=== PATIENT | male | born 1995 | race Caucasian/White ===

== ENCOUNTER 2021-04-24 20:37 | Emergency (ER) | payer SELFPAY ==
[~2021-04-24] VITALS: Ht 182.9 cm; Wt 100.0 kg
[2021-04-24 20:56] VITALS: TEMP 101
[2021-04-24 22:32] VITALS: BP 144/70; PULSE 78
== END 2021-04-24 22:32 | disposition home or self-care (01) ==
LOC: COL.ER 20:37
DX: U07.1 COVID-19 (principal); F17.200 Nicotine dependence, unspecified, uncomplicated
CPT/HCPCS: J1885; J2405; J7030

== ENCOUNTER 2021-04-26 01:20 | Inpatient (IN) | payer SELFPAY ==
[~2021-04-26] VITALS: Ht 182.9 cm; Wt 96.8 kg
[2021-04-26 02:41] LABS: HEMATOCRIT 43.4 % (42.0-52.0); HEMOGLOBIN 15.2 g/dl (13.5-18.0); MEAN CELL VOLUME 85 fl (80.0-100.0); MEAN CORPUSCULAR HEMOGLOBIN 30 pg (27.0-31.0); MEAN CORPUSCULAR HGB CONC 35 g/dl (33.0-37.0); MEAN PLATELET VOLUME 10.5 fl (7.4-10.4); PLATELET COUNT 159 K/mm3 (130-400); RED BLOOD COUNT 5.08 M/mm3 (4.20-5.60); REDCELL DISTRIBUTION WIDTH-CV 11.9 % (11.5-14.5)
[2021-04-26 03:01] LABS: ALBUMIN 3.4 gm/dL (3.5-5.0); BILIRUBIN,TOTAL 0.6 mg/dL (0.2-1.2); C-REACTIVE PROTEIN 12.3 mg/dL (0.00-0.50); CALCIUM 8.6 mg/dL (8.4-10.2); CREATININE, serum 1.14 mg/dL (0.72-1.25); POTASSIUM 3.5 mmol/L (3.5-4.5)
[2021-04-26 03:05] LABS: BAND 1 % (0-10); BASOPHIL 1 % (0-2); LYMPHOCYTE 9 % (20.0-51.0); NEUTROPHILS 83 % (42.0-75.2); PLATELET ESTIMATE NORMAL (NORMAL)
[2021-04-26 03:06] LABS: TROPONIN-I 0.011 ng/mL (0.00-0.033)
--- NOTE | 2021-04-26 07:30 | NUR ---
Patient admitted from the ED for Covid. Upon initial assessment, patient is requiring 4.5 L of O2 via nasal cannula. Lung sounds diminished in all olivas, crackles in lower right field. Normal S1 and S2 sounds present, radial and pedal pulses +2 bilaterally. Bowel sounds present in all four quadrants. Patient running a temperature of 102.0. Tylenol administered. Upon re-assessment, temperature was 100.3. Cool clothes placed on patient. Fluids running as ordered. Patient states that he has been having some nausea, but denies any vomitting or diarrhea. PRN Robutussin given for cough. Patient denies any pain, discomfort, or further needs at this time. Call light in reach.
[2021-04-26 07:39] VITALS: PULSE 101; TEMP 102
[2021-04-26 10:33] VITALS: TEMP 100.3
--- NOTE | 2021-04-26 12:13 | NUR ---
Bubbler placed on O2 due to complaints of dry nares.
[2021-04-26 12:45] VITALS: BP 127/76; PULSE 86; TEMP 98.4
[2021-04-26 16:00] VITALS: BP 145/77; PULSE 96; TEMP 100
--- NOTE | 2021-04-26 16:46 | NUR ---
road worker attempted to contact patient via cell phone ([phone]) and room phone, both were unsuccessful.
--- NOTE | 2021-04-26 17:20 | NUR ---
Patient currently requiring 5 L of O2 via nasal cannula. This RN spoke with patient about the importance of adequate nutrition during the healing process. Patient encouraged to get up and walk around. Patient verbalized an understanding of the teaching. Fluids running as ordered. Patient denies any pain, discomfort, or further needs at this time. Call light in reach.
[2021-04-26 19:54] VITALS: BP 146/57; PULSE 108; TEMP 101.5
--- NOTE | 2021-04-26 20:00 | NUR ---
Assessment complete. Patient is febrile at 101.5 and is experiencing chills and tachycardia of 108 bpm. PRN Tylenol is administered, in addition to cough medicine. Fine crackles are noted in patient's lung bases. He is satting 93% on 5 liters 02 with a respiratory rate of 24. Will continue close monitoring.
--- NOTE | 2021-04-26 22:30 | NUR ---
Patient's temperature has come down to 99.2 at this time and tachycardia/chills have subsided. Patient has just been up to the bathroom and is satting 88-89% on 5 liters; He is titrated up to 7.5 liters before he is able to sat above 91%. Comfort measures provided.
[2021-04-27] VITALS (8 sets, daily range): BP systolic 116–130; BP diastolic 64–78; PULSE 50–106; TEMP 98.3–98.7
--- NOTE | 2021-04-27 | NUR ---
Temp has come down to 98.3 and patient is resting comfortably. He is titrated down to 6 liters and satting 93%. Fluids still infusing into left a/c IV.
--- NOTE | 2021-04-27 04:00 | NUR ---
Patient transitioned to airvo by RT Powell at this time. He is satting 92-93% on 60L/80% Patient is repositioned on his side/stomach for better oxygenation. Anti-anxiety medications are offered and patient denies the need. He appears receptive of education. PRN cough medication is administered again. Bloody sputum sample sent to lab for review. Will continue close monitoring.
[2021-04-27 04:44] LABS: ARTERIAL BLD GAS O2 SATURATION 87.1 % (92-100); ARTERIAL BLD GAS TCO2 CT 24.3; ARTERIAL BLOOD GAS BASE EXCESS 0.4 (-2-2); ARTERIAL BLOOD GAS HCO3 23.3 meq/L (22-26); ARTERIAL BLOOD GAS PCO2 32.7 mmHg (35-45); ARTERIAL BLOOD GAS pH 7.47 (7.35-7.45)
[2021-04-27 04:45] LABS: ARTERIAL BLOOD GAS PO2 47.9 mmHg (80-100)
[2021-04-27 05:56] LABS: ARTERIAL BLD GAS O2 SATURATION 94.8 % (92-100); ARTERIAL BLD GAS TCO2 CT 24.5; ARTERIAL BLOOD GAS BASE EXCESS 0.4 (-2-2); ARTERIAL BLOOD GAS HCO3 23.4 meq/L (22-26); ARTERIAL BLOOD GAS PCO2 33.4 mmHg (35-45); ARTERIAL BLOOD GAS PO2 72.8 mmHg (80-100); ARTERIAL BLOOD GAS pH 7.46 (7.35-7.45)
--- NOTE | 2021-04-27 15:09 | NUR ---
fish hatchery worker attempted contact with patient again today with no success. Contact made with the patients mother who states that the patient lives at home with her, is fully independent and utilizes no medical equipment. Mother states that the patient had the opportunity to sign up for medical insurance through his employer, however didn't feel like he needed to because he has always been healthy. Mother questions about getting the patient established on [facility]. I educated her that the chance of this is unlikely, however i can have our financial assistance team reach out.
--- NOTE | 2021-04-27 18:32 | NUR ---
Patient has had an ok day. Scheduled medications given. Shift assessment preformed. Patient currently requiring 60L on airvo at 80%. Robutussin given once this shift for cough. PICC line placed by SHAMEKA Carmona. Update given to Torin. Patient still does not have much of an appetite. Fluids encouraged. Patient denies any pain, discomfort, or further needs at this time. VSS. Patient A&O. Call light in reach.
--- NOTE | 2021-04-27 20:00 | NUR ---
Assessment complete. Patient on airvo 60L/80% and is breathing easily, satting 93%. Pt is afebrile at this time. PRN cough medicine is provided, in addition to water and snacks. Patient denies pain. Will continue to monitor.
[2021-04-28 04:18] VITALS: BP 116/63; PULSE 61; TEMP 98.4
--- NOTE | 2021-04-28 07:00 | NUR ---
Report received from SHAMEKA Brady. pT in bed resting with AIRVO in place, will continue to monitor.
[2021-04-28 07:36] VITALS: BP 119/60; PULSE 60; TEMP 98.2
[2021-04-28 07:44] LABS: MEAN CELL VOLUME 86 fl (80.0-100.0); MEAN CORPUSCULAR HGB CONC 35 g/dl (33.0-37.0); MEAN PLATELET VOLUME 10.1 fl (7.4-10.4); PLATELET COUNT 251 K/mm3 (130-400); REDCELL DISTRIBUTION WIDTH-CV 11.9 % (11.5-14.5)
[2021-04-28 07:59] LABS: CALCIUM 7.6 mg/dL (8.4-10.2); CREATININE, serum 0.75 mg/dL (0.72-1.25); POTASSIUM 3.8 mmol/L (3.5-4.5)
--- NOTE | 2021-04-28 08:00 | NUR ---
ASessemnt charted. Pt is tachypneac, shallow breathing and only at 92% on 60L/85% AIRVO. Notified RT of this and discussed possibility of switching to Bipap. Pt states he is coughing some and has some blood tinge to sputum. States he is feeling okay, dneies pain, does appear anxious at rest. Discussed things he can do like move in bed, sit at side of bed, get up to bathroom, sit in recliner, prone. Pt agreeable to suggestions, also discussed need to take it slow and if getting short of breath to take frequent restes. PICC to LEXUS flushes and good blood return. Will continue to monitor.
[2021-04-28 08:13] LABS: HEMATOCRIT 36.9 % (42.0-52.0); HEMOGLOBIN 12.9 g/dl (13.5-18.0); MEAN CORPUSCULAR HEMOGLOBIN 30 pg (27.0-31.0)
[2021-04-28 08:36] LABS: BAND 5 % (0-10); LYMPHOCYTE 17 % (20.0-51.0); NEUTROPHILS 71 % (42.0-75.2); PLATELET ESTIMATE NORMAL (NORMAL)
[2021-04-28 11:32] LABS: COLLECTION METHOD CLEAN CATCH
[2021-04-28 11:40] LABS: PH 7 (5-8); SQUAMOUS EPITHELIAL None Seen /hpf; URINE APPEARANCE Clear; URINE BACTERIA None Seen /hpf; URINE BILIRUBIN Negative (NEGATIVE); URINE BLOOD Negative (NEGATIVE); URINE COLOR Yellow; URINE GLUCOSE Negative (NEGATIVE); URINE KETONE Negative (NEGATIVE); URINE LEUKOCYTE ESTERASE Negative (NEGATIVE); URINE NITRATE Negative (NEGATIVE); URINE PROTEIN(semi-quant) Negative (NEGATIVE); URINE RBC 0-2 /hpf; URINE UROBILINOGEN Negative (NEGATIVE)
[2021-04-28 12:31] VITALS: BP 116/57; PULSE 69; TEMP 98.5
--- NOTE | 2021-04-28 13:14 | NUR ---
Update provided to mother per request.
[2021-04-28 15:38] VITALS: BP 123/72; PULSE 63; TEMP 98.2
--- NOTE | 2021-04-28 18:14 | NUR ---
Pt resting in bed with eyes clsoed, tolerating decrease in AIRVO needs well. Resting quietly between disturbances but states he still has no appetite and has not eaten. Encouraging PO intake. Will give report to nightshift nurse whoi will resume care.
[2021-04-28 19:27] VITALS: BP 124/54; PULSE 72; TEMP 98.4
[2021-04-29] VITALS (7 sets, daily range): BP systolic 120–128; BP diastolic 65–75; PULSE 59–90; TEMP 98.1–98.6
--- NOTE | 2021-04-29 06:30 | NUR ---
Report received from SHAMEKA Guillen. PT in bed resting, denies needs, will continue to monitor.
--- NOTE | 2021-04-29 06:31 | NUR ---
PT HAD UNEVENTFUL NIGHT, 02 AIRVO 45L. 69 FIO2, SATURATING 97 PERCENT. ABX ADMINSTERED ORDERED. PT DENIES PAIN,SOA, N,V,D, PAIN. ALL NEEDS MET. CALL LIGHT WITHIN REACH.
--- NOTE | 2021-04-29 08:00 | NUR ---
Assessment charted. Pt feeling well today, feels breathing is easier. States he ate food from home last night. Will continue to monitor.
--- NOTE | 2021-04-29 18:15 | NUR ---
Pt has done well over shift, resting off and on. Denies needs, 02 titrating down well, will continue to monitor and give bedside shift report to nightshift nurse who will resume care.
--- NOTE | 2021-04-29 23:28 | NUR ---
PT TITRATED DOWN ON AIRVO 40L, 38 FIO2 SATURATING 96 PERCENT. DENIES SOA,PAIN,N,V,D.
--- NOTE | 2021-04-30 01:35 | NUR ---
PT WEANED TO HIGH FLOW NC 8L, SATURATING 95 PERCENT. PT TOLERATING WELL. THIS NURSE WILL CONTINUE TO MONITOR.
[2021-04-30 03:35] VITALS: BP 104/57; PULSE 57; TEMP 98
--- NOTE | 2021-04-30 06:21 | NUR ---
PT SLEPT INTERMITTENTLY THROUGH OUT NIGHT, PT TOLERATING 8L NC WITH SATURATIONS OVER 92 PERCENT. PT DENIES N,V,D. HAS REMAINED AFEBRILE. POC DISCUSSED WITH PT AND MOTHER. BOTH VERBALIZE UNDERSTANDING. THIS NURSE REVIEWED THE PURPOSE OF 02 WEANING, POSITIONING AND DIET. ALL QUESTIONS/CONCERNS ANSWERED. CALL LIGHT WITHIN REACH.
--- NOTE | 2021-04-30 08:03 | NUR ---
Pt sleeping upon entry, easily awakened, no C/O pain at this time. Shift assessment complete, left Pt call light in reach, bed in lowest position.
[2021-04-30 08:18] VITALS: BP 111/50; PULSE 104; TEMP 97.9
--- NOTE | 2021-04-30 10:47 | NUR ---
The patient is listed as self pay. SW consulted Financial Counseling for an FAA. The patient is currently requiring 8 liters of oxygen.
[2021-04-30 11:43] VITALS: BP 126/69; PULSE 65; TEMP 99.2
[2021-04-30 13:30] LABS: HEMATOCRIT 43.8 % (42.0-52.0); MEAN CELL VOLUME 87 fl (80.0-100.0); MEAN CORPUSCULAR HEMOGLOBIN 30 pg (27.0-31.0); MEAN CORPUSCULAR HGB CONC 34 g/dl (33.0-37.0); MEAN PLATELET VOLUME 9.9 fl (7.4-10.4); PLATELET COUNT 315 K/mm3 (130-400); RED BLOOD COUNT 5.03 M/mm3 (4.20-5.60); REDCELL DISTRIBUTION WIDTH-CV 11.9 % (11.5-14.5)
[2021-04-30 13:45] LABS: HEMOGLOBIN 14.9 g/dl (13.5-18.0)
[2021-04-30 13:50] LABS: CALCIUM 8.8 mg/dL (8.4-10.2); CREATININE, serum 0.8 mg/dL (0.72-1.25); MAGNESIUM 2.1 mg/dL (1.6-2.6); POTASSIUM 4.2 mmol/L (3.5-4.5)
[2021-04-30 13:57] LABS: LYMPHOCYTE 22 % (20.0-51.0); NEUTROPHILS 66 % (42.0-75.2)
[2021-04-30 13:58] LABS: HYPOCHROMIA 3+
[2021-04-30 13:59] LABS: PLATELET ESTIMATE NORMAL (NORMAL)
[2021-04-30 16:13] VITALS: BP 123/33; PULSE 80; TEMP 98.1
[2021-04-30 22:25] VITALS: BP 116/62; PULSE 71; TEMP 99
[2021-04-30 23:48] VITALS: BP 128/59; PULSE 68; TEMP 98.5
--- NOTE | 2021-05-01 00:02 | NUR ---
PT TITRATED TO 3L NC SATURING 95-97 PERCENT AT THIS TIME. THIS NURSE WILL CONTINUE TO MONITOR.
[2021-05-01 03:23] VITALS: BP 102/54; PULSE 58; TEMP 97.8
--- NOTE | 2021-05-01 05:34 | NUR ---
PT HAD UNEVENTFUL NIGHT, 02 REMAINS 3L NC WITH SATURATIONS 92-94 PERCENT. PT DENIES N,V,D. COUGH REMAINS WITH SCANT CLEAR THICK SPUTUM. I&O NOTED AND RECORDED. PT APPETITE INCREASING. POC DISCUSSED WITH PT THIS NIGHT. PT VERBALIZES. ALL QUESTIONS/CONCERNS ANSWERED. ALL NEEDS MET THIS NIGHT. CALL LIGHT WITHIN REACH.
[2021-05-01 08:00] VITALS: BP 120/71; PULSE 94; TEMP 98.6
--- NOTE | 2021-05-01 09:05 | NUR ---
Pt sleeping upon entry to room, easily awakened. No C/O pain at this time. Shift assessment complete, left Pt call light in reach, bed in lowest position
[2021-05-01] MEDS ORDERED: MONODOX100 PO (10:58)
[2021-05-01] MEDS ORDERED: DECADRON6 MG PO (10:59)
[2021-05-01] MEDS ORDERED: PROVENTIL0.09 MG/A1 IH (10:59)
[2021-05-01 11:07] VITALS: BP 122/65; PULSE 83; TEMP 98.5
--- NOTE | 2021-05-01 13:04 | NUR ---
Birth Certificate Clerk collaborated with RT who advised patient will not require home oxygen upon discharge. FATUMA then spoke with Hospitalist who advised patient will discharge home today. Field Marketing Lead has scheduled a telehealth visit with Dr. Shepard in [place]. FATUMA contacted patient's mother, Domonique to review discharge plan. Domonique advised she will not see Dr. Shepard herself, however thinks patient will be agreeable to telehealth visit. Domonique advised she contacted patient's preferred pharmacy and they can afford his discharge medications. Discharge Plan: Home with mother today
--- NOTE | 2021-05-01 17:30 | NUR ---
Pt discharged to home, discussed discharge packet with Pt. Escoreted Pt to entrance, Pt left with family via private transportation.
== END 2021-05-01 17:30 | disposition home or self-care (01) | DRG 177 ==
LOC: COL.ER 01:20 → MEDICAL 05:43
PROVIDERS: Internal Medicine; Nurse Practitioner Family; Student in an Organized Health Care Education/Training Program; ADMIT Student in an Organized Health Care Education/Training Program
PROC: 02HV33Z Insertion of Infusion Device into Superior Vena Cava, Percutaneous Approach (ICD-10-PCS; principal; 2021-04-27)
PROC: XW043E5 Introduction of Remdesivir Anti-infective into Central Vein, Percutaneous Approach, New Technology Group 5 (ICD-10-PCS; 2021-04-27)
DX: U07.1 COVID-19 (principal); J12.82 Pneumonia due to coronavirus disease 2019; J96.01 Acute respiratory failure with hypoxia; R04.2 Hemoptysis; R74.01 Elevation of levels of liver transaminase levels; F41.9 Anxiety disorder, unspecified; F17.210 Nicotine dependence, cigarettes, uncomplicated; E87.6 Hypokalemia
CPT/HCPCS: 99223-AI; 99232-AI; 99233-AI; 99239; A9284; C1751; J0696; J1100; J1650; J2543; J7030; J7050; J7120; J8540; Q0249; Q9967